=== PATIENT | male | born 1960 | race American Indian/Alaskan Native ===

== ENCOUNTER 2019-01-01 17:48 | Emergency (ER) | payer SELFPAY ==
--- NOTE | 2019-01-01 18:05 | Event Note ---
ED Screening Note Date of service: 01/01/19 Time: 18:02 ED Screening Note: This is a 58 y.o. M. that presents to the ER with thoughts of suicide. Patient reports using crack cocaine for 1-2 months. Denies having a plan. This initial assessment/diagnostic orders/clinical plan/treatment(s) is/are subject to change based on patients health status, clinical progression and re- assessment by fellow clinical providers in the ED. Further treatment and workup at subsequent clinical providers discretion. Patient/guardian urged not to elope from the ED as their condition may be serious if not clinically assessed and managed. Initial orders include: Labs
[2019-01-01 18:24] LABS: Basophils # (Auto) 0.1 K/mm3 (0.0-0.1); Basophils % (Auto) 1.1 % (0.0-1.8); Eosinophils # (Auto) 0.1 K/mm3 (0.0-0.4); Eosinophils % (Auto) 1.4 % (0.0-4.3); Hematocrit 43.5 % (35.5-45.6); Hemoglobin 15.1 gm/dl (11.8-15.2); Lymphocytes # (Auto) 1.6 K/mm3 (1.2-5.4); Lymphocytes % (Auto) 31.4 % (13.4-35.0); Mean Corpuscular HGB Conc 35 % (32-34); Mean Corpuscular Volume 98 fl (84-94); Monocytes # (Auto) 0.5 K/mm3 (0.0-0.8); Monocytes % (Auto) 9.8 % (0.0-7.3); Platelet Count 222 K/mm3 (140-440); Red Blood Count 4.42 M/mm3 (3.65-5.03); Red Cell Distribution Width 13.8 % (13.2-15.2)
[2019-01-01] MEDS ORDERED: ZOFRAN ODT PO STA (18:29)
[2019-01-01] MEDS ORDERED: ALUM-MAG HYDROX-SIMETH 200-200-20MG/5ML PO STA (18:29)
[2019-01-01] MEDS ORDERED: TORADOL IM STA (18:29)
[2019-01-01 18:37] LABS: BUN/Creatinine Ratio 20; Blood Urea Nitrogen 24 mg/dL (9-20); Calcium 9.8 mg/dL (8.4-10.2); Hemolysis Index 16
--- NOTE | 2019-01-01 19:21 | Emergency Department Report ---
ED Psych HPI - General Chief Complaint: Psych Stated Complaint: SI/MH Time Seen by Provider: 01/01/19 18:02 Source: patient Mode of arrival: Ambulatory - History of Present Illness MD Complaint: suicidal ideation -: Sudden, days(s) Associated Psychiatric Symptoms: depression History of same: No Quality: constant Improves With: none Worsens With: none Associated Symptoms: denies other symptoms Treatments Prior to Arrival: none If Self Harm: has plan (report that he would jump out in traffic) - Related Data Home Medications Medication Instructions Recorded Confirmed Last Taken Lisinopril [Zestril TAB] 10 mg PO QDAY 01/02/19 01/02/19 Unknown hydroCHLOROthiazide [HCTZ] 25 mg PO DAILY 01/02/19 01/02/19 Unknown Allergies Allergy/AdvReac Type Severity Reaction Status Date / Time No Known Allergies Allergy Verified 01/01/19 17:52 ED Review of Systems ROS: Stated complaint: SI/MH Other details as noted in HPI Comment: All other systems reviewed and negative ED Past Medical Hx - Past Medical History Previous Medical History?: Yes Hx Hypertension: Yes Hx Arthritis: Yes - Surgical History Past Surgical History?: No - Social History Smoking Status: Current Every Day Smoker Substance Use Type: Cocaine - Medications Home Medications: Home Medications Medication Instructions Recorded Confirmed Last Taken Type Lisinopril [Zestril TAB] 10 mg PO QDAY 01/02/19 01/02/19 Unknown History hydroCHLOROthiazide [HCTZ] 25 mg PO DAILY 01/02/19 01/02/19 Unknown History ED Physical Exam - General Limitations: No Limitations General appearance: alert, in no apparent distress - Head Head exam: Present: atraumatic, normocephalic - Eye Eye exam: Present: normal appearance, PERRL, EOMI Pupils: Present: normal accommodation - ENT ENT exam: Present: normal exam, normal orophraynx, mucous membranes moist - Neck Neck exam: Present: normal inspection, full ROM - Respiratory Respiratory exam: Present: normal lung sounds bilaterally. Absent: respiratory distress, wheezes, rales, chest wall tenderness, accessory muscle use, decreased breath sounds - Cardiovascular Cardiovascular Exam: Present: regular rate, normal rhythm. Absent: systolic murmur, diastolic murmur, rubs, gallop - GI/Abdominal GI/Abdominal exam: Present: soft, normal bowel sounds - Rectal Rectal exam: Present: deferred - Extremities Exam Extremities exam: Present: normal inspection - Back Exam Back exam: Present: normal inspection, full ROM. Absent: CVA tenderness (R), CVA tenderness (L), paraspinal tenderness, vertebral tenderness - Neurological Exam Neurological exam: Present: alert, oriented X3, CN II-XII intact, normal gait - Psychiatric Psychiatric exam: Present: normal affect, normal mood - Skin Skin exam: Present: warm, dry, intact, normal color. Absent: rash ED Course Vital Signs 01/01/19 01/01/19 01/01/19 18:02 18:40 20:42 Temperature 98.3 F 98.8 F Pulse Rate 106 H 75 Respiratory 16 18 18 Rate Blood Pressure Blood Pressure 147/97 131/86 [Left] O2 Sat by Pulse 99 99 Oximetry 01/02/19 01/02/19 01/02/19 01:00 07:00 13:00 Temperature 98.2 F 98.2 F 98.1 F Pulse Rate 80 92 H 96 H Respiratory 18 18 18 Rate Blood Pressure Blood Pressure 135/78 128/77 151/91 [Left] O2 Sat by Pulse 99 98 98 Oximetry 01/02/19 01/02/19 01/03/19 19:30 20:00 01:00 Temperature 98.4 F 98.4 F Pulse Rate 76 72 Respiratory 18 18 18 Rate Blood Pressure Blood Pressure 143/80 134/82 [Left] O2 Sat by Pulse 98 99 Oximetry 01/03/19 01/03/19 01/03/19 07:35 11:10 17:32 Temperature 98.5 F 98.4 F Pulse Rate 89 89 89 Respiratory 18 Rate Blood Pressure 123/103 Blood Pressure 123/103 105/72 [Left] O2 Sat by Pulse 100 96 Oximetry 01/03/19 01/04/19 01/04/19 21:04 02:15 07:00 Temperature 98.1 F 98.2 F 98.1 F Pulse Rate 62 59 L 85 Respiratory 16 18 18 Rate Blood Pressure Blood Pressure 110/68 100/68 119/90 [Left] O2 Sat by Pulse 96 96 99 Oximetry ED Medical Decision Making - Lab Data Result diagrams: 01/01/19 18:13 01/01/19 18:13 - Medical Decision Making 58-year-old Mexican male with known history of depression presents emergency department complaining of suicidal ideation. After evaluation in the emergency department for a psychiatric disease, no findings exacerbating or causing the psychiatric complaint. This patient demonstrates no contributing medical instability or "condition facilitating this psychiatric presentation. See the accompanying mental health development coach's note for more detail Critical care attestation.: If time is entered above; I have spent that time in minutes in the direct care of this critically ill patient, excluding procedure time. ED Disposition Disposition: DC-01 TO HOME OR SELFCARE Condition: Stable Referrals: PRIMARY CARE, [Primary Care Provider] - 3-5 Days
[2019-01-01 22:53] LABS: Bilirubin,Urine NEG (Negative); Blood,Urine NEG (Negative); Color,Urine Yellow (Yellow); Mucus,Urine FEW /HPF; Protein,Urine <15 mg/dL mg/dL (Negative)
[2019-01-01 23:39] LABS: Amphetamine Screen,Urine PRESUMPTIVE NEGATIVE; Benzodiazepines Screen,Urine PRESUMPTIVE NEGATIVE; Methadone Screen,Urine PRESUMPTIVE NEGATIVE; Opiate Screen,Urine PRESUMPTIVE NEGATIVE
[2019-01-01 23:59] LABS: Cannabinoid Screen,Urine PRESUMPTIVE POSITIVE; Cocaine Screen,Urine PRESUMPTIVE POSITIVE
[2019-01-02] MEDS ORDERED: ZOFRAN ODT PO ONE (00:15)
--- NOTE | 2019-01-02 09:30 | Consultation ---
History of Present Illness - Reason for Consult Consult date: 01/02/19 Reason for consult: Mental Health Evaluation Requesting physician: ELICEO HIGUERA - Chief Complaint Chief complaint: "I'm not doing well" - History of Present Psychiatric Illness 58 y/o AA male who presented to the ER for Si's. Today the patient was calm during the assessment. He stated "binging on drugs" for several days prior to coming to the ER. He stated that he have a long hx of substance abuse. He stated that he want help for his dug addiction. He stated that [place] get away from the drugs, but find himself relapsing once he arrived to [facility]. He stated that he is homeless at this time. He rate his depression 7/10, with 10 being the worse. He denies any previous suicide attempts when asked. He would not confirm or deny SI's and a suicide plan. He denies HI's and AVH's. He acknowledged erratic sleep and a poor appetite. He denies alcohol consumption (etoh). Medications and Allergies Allergies Allergy/AdvReac Type Severity Reaction Status Date / Time No Known Allergies Allergy Verified 01/01/19 17:52 Past psychiatric history - Past Medical History Past Medical History: No medical history Past Surgical History: No surgical history - past Psychiatric treatment and history psychiatric treatment history: Hx of substance abuse. Denies a fam psy hx. - Social History Social history: other (Homeless) Mental Status Exam - Vital signs Last Vital Signs Temp 98.2 F 01/02/19 07:00 Pulse 92 H 01/02/19 07:00 Resp 18 01/02/19 07:00 BP 128/77 01/02/19 07:00 Pulse Ox 98 01/02/19 07:00 - Exam Narrative exam: MSE: Appearance: calm, cooperative Behavior: regular eye contact Speech: regular rate and tone Mood: "depressed" Affect: congruent to mood Thought Process: circumstantial Thought Content: denies HI's and AVHs' Motor Activity: lying in bed Cognition: A/O x 3 Insight: variable Judgment: poor Results Result Diagrams: 01/01/19 18:13 01/01/19 18:13 Abnormal lab results 01/01/19 01/01/19 01/01/19 Range/Units 18:13 18:13 18:13 MCV (84-94) fl MCH (28-32) pg MCHC (32-34) % [place] % (Auto) (0.0-7.3) % Chloride 97.0 L (98-107) mmol/L BUN 24 H (9-20) mg/dL Glucose 120 H (75-100) mg/dL Salicylates < 0.3 L (2.8-20.0) mg/dL Acetaminophen < 5.0 L (10.0-30.0) ug/mL 01/01/19 Range/Units 18:13 MCV 98 H (84-94) fl MCH 34 H (28-32) pg MCHC 35 H (32-34) % [place] % (Auto) 9.8 H (0.0-7.3) % Chloride (98-107) mmol/L BUN (9-20) mg/dL Glucose (75-100) mg/dL Salicylates (2.8-20.0) mg/dL Acetaminophen (10.0-30.0) ug/mL All other labs normal. Assessment and Plan Assessment and plan: Impression: MDD. Substance Use DO (cocaine). Cannabis Use DO. Today the patient was calm during the assessment. DDx: Substance Induced Mood DO Recommendations/Plan: Continue 1013 and start Remeron 15 mg PO HS for depression. Discussed possible suicidality/medication induced sudeep with the patient, he verbalized understanding,. Dipso: The patient was referred to inpatient psy services. Will staff with Dr Quan Malik.
[2019-01-02] MEDS ORDERED: ALUM-MAG HYDROX-SIMETH 200-200-20MG/5ML PO ONE (16:40)
[2019-01-02] MEDS: REMERON PO SCH (22:00)
[2019-01-03] MEDS ORDERED: ALUM-MAG HYDROX-SIMETH 200-200-20MG/5ML ONE (02:23)
--- NOTE | 2019-01-03 07:43 | Progress Note ---
Subjective - Reason for Consult Consult date: 01/03/19 Reason for consult: Psychiatry Follow-up - Chief Complaint Chief complaint: "I'm so so" 58 y/o AA male who presented to the ER for Si's. Today the patient was calm during the assessment. He stated that he is doing "so so." He stated that he do not know what his next move will be with his life. He's somewhat guarded during the interview. He denies HI's and AVH's. He would not confirm or deny SI"s. He denies any side effects from his medication. Mental Status Exam - Vital signs Last Vital Signs Temp 98.4 F 01/03/19 01:00 Pulse 72 01/03/19 01:00 Resp 18 01/03/19 01:00 BP 134/82 01/03/19 01:00 Pulse Ox 99 01/03/19 01:00 - Exam Narrative exam: MSE: Appearance: calm, cooperative Behavior: regular eye contact Speech: regular rate and tone Mood: somewhat guarded Affect: flat Thought Process: circumstantial Thought Content: denies HI's and AVH's Motor Activity: lying in bed Cognition: A/O x 3 Insight: fair Judgment: variable Assessment and Plan Impression: MDD. Substance Use DO (cocaine). Cannabis Use DO. Today the patient was calm during the assessment. DDx: Substance Induced Mood DO Recommendations/Plan: Reevaluate the patient's 1013 in 24 hours. Continue Remeron 15 mg PO HS for depression. Discussed possible suicidality/medication induced sudeep with the patient, he verbalized understanding. Case Mgmt involvement, the patient will need assistance with placement. Dipso: If the patient's 1013 is rescinded in 24 hours, he can follow up with [facility] for outpatient psy/rehab services. Will staff with Dr Quan Malik.
[2019-01-03] MEDS ORDERED: ZESTRIL PO ONE (10:39)
[2019-01-03] MEDS ORDERED: HCTZ PO ONE (10:39)
[2019-01-03] MEDS: PEPCID PO PRN ×2 (11:00→21:46)
[2019-01-03] MEDS: REMERON PO SCH (21:46)
--- NOTE | 2019-01-04 08:24 | Progress Note ---
Subjective - Reason for Consult Consult date: 01/04/19 Reason for consult: Psychiatry Follow-up - Chief Complaint Chief complaint: "I will do better" 58 y/o AA male who presented to the ER for Si's. Today the patient was calm and cooperative during the assessment. He stated that he is fine this morning. He stated that he will follow up with [facility] for outpatient psy services. He stated that he will address his substance abuse once discharged. He denies SI/HI's and AVH's. He denies any side effects from his medication. Mental Status Exam - Vital signs Last Vital Signs Temp 98.2 F 01/04/19 02:15 Pulse 59 L 01/04/19 02:15 Resp 18 01/04/19 02:15 BP 100/68 01/04/19 02:15 Pulse Ox 96 01/04/19 02:15 - Exam Narrative exam: MSE: Appearance: calm, cooperative Behavior: regular eye contact Speech: regular rate and tone Mood: "okay" Affect: congruent to mood Thought Process: logical Thought Content: denies SI/HI's and AVH's Motor Activity: lying in bed Cognition: A/O x 3 Insight: fair Judgment: fair Assessment and Plan Impression: MDD. Substance Use DO (cocaine). Cannabis Use DO. Today the patient was calm during the assessment. DDx: Substance Induced Mood DO Recommendations/Plan: Rescind 1013. Continue Remeron 15 mg PO HS for depression. Discussed possible suicidality/medication induced sudeep with the patient, he verbalized understanding. Discussed the importance to abstain from recreational drug use, he verbalized understanding. Case Mgmt involvement, the patient will need assistance with placement. Dipso: The patient can follow up with [facility] for outpatient psy services. Staffed with Dr Quan Malik.
[2019-01-04 10:56] VITALS: BP 119/90
== END 2019-01-04 11:15 | disposition home or self-care (01) ==
LOC: EEVIPCON 17:48 → ED 17:48
DX: F32.9 Major depressive disorder, single episode, unspecified (principal); F14.10 Cocaine abuse, uncomplicated; F12.10 Cannabis abuse, uncomplicated; I10 Essential (primary) hypertension; M19.90 Unspecified osteoarthritis, unspecified site; F17.200 Nicotine dependence, unspecified, uncomplicated
CPT/HCPCS: 36415; 80048; 80307; 81001; 85025; 96372; 99284; J1885; 80320; G0480; Q0162

== ENCOUNTER 2019-01-13 07:34 | Emergency (ER) | payer SELFPAY ==
[2019-01-13 08:18] LABS: Eosinophils # (Auto) 0.1 K/mm3 (0.0-0.4); Eosinophils % (Auto) 1.5 % (0.0-4.3); Hematocrit 38.1 % (35.5-45.6); Lymphocytes # (Auto) 1.3 K/mm3 (1.2-5.4); Lymphocytes % (Auto) 34.8 % (13.4-35.0); Mean Corpuscular HGB Conc 34 % (32-34); Mean Corpuscular Volume 99 fl (84-94); Monocytes # (Auto) 0.3 K/mm3 (0.0-0.8); Monocytes % (Auto) 7.9 % (0.0-7.3); Platelet Count 206 K/mm3 (140-440); Red Blood Count 3.84 M/mm3 (3.65-5.03); Red Cell Distribution Width 13.2 % (13.2-15.2)
[2019-01-13] MEDS ORDERED: ACETAMINOPHEN 325 MG TAB PO ONE (08:29)
[2019-01-13] MEDS ORDERED: DOCUSATE SODIUM 100 MG CAP PO ONE (08:29)
[2019-01-13 08:32] LABS: BUN/Creatinine Ratio 15; Blood Urea Nitrogen 18 mg/dL (9-20); Calcium 9.3 mg/dL (8.4-10.2); Hemolysis Index 4
--- NOTE | 2019-01-13 08:40 | Emergency Department Report ---
<IRAJ SHIN - Last Filed: 01/13/19 13:22> ED Psych HPI - General Chief Complaint: Psych Stated Complaint: SI Time Seen by Provider: 01/13/19 08:06 Source: patient Mode of arrival: Ambulatory - History of Present Illness Initial Comments: 58-year-old -[place] male presents to the emergency room stating he wants to go to [place]. Patient reports he is hearing voices that are telling him to hurt himself. Patient also reports that he recently lost his sister. Patient denies having a plan. Patient does admit to history of depression and hypertension. Patient also complains of swelling to the lower legs. Patient is homeless and walks a lot. Patient also reports has not been able to have a bowel movement in over a week. She denies any abdominal pain but reports that he has pressure in his rectum. MD Complaint: suicidal ideation, feels depressed Onset/Timin -: week(s) Associated Psychiatric Symptoms: depression, suicidal ideation History of same: Yes Improves With: none Worsens With: none Associated Symptoms: denies other symptoms Treatments Prior to Arrival: none If Self Harm: admits thoughts of - Related Data Home Medications Medication Instructions Recorded Confirmed Last Taken Lisinopril [Zestril TAB] 10 mg PO QDAY 01/02/19 01/14/19 Unknown hydroCHLOROthiazide [HCTZ] 25 mg PO DAILY 01/02/19 01/14/19 Unknown Allergies Allergy/AdvReac Type Severity Reaction Status Date / Time No Known Allergies Allergy Verified 01/01/19 17:52 ED Review of Systems Comment: All other systems reviewed and negative ED Past Medical Hx - Past Medical History Hx Hypertension: Yes Hx Arthritis: Yes - Social History Smoking Status: Current Every Day Smoker Substance Use Type: Cocaine, Marijuana, Methamphetamines - Medications Home Medications: Home Medications Medication Instructions Recorded Confirmed Last Taken Type Lisinopril [Zestril TAB] 10 mg PO QDAY 01/02/19 01/14/19 Unknown History hydroCHLOROthiazide [HCTZ] 25 mg PO DAILY 01/02/19 01/14/19 Unknown History ED Physical Exam - General Limitations: No Limitations General appearance: alert, in no apparent distress, anxious - Head Head exam: Present: atraumatic, normocephalic - Eye Eye exam: Present: normal appearance - ENT ENT exam: Present: mucous membranes moist - Neck Neck exam: Present: normal inspection - Respiratory Respiratory exam: Present: normal lung sounds bilaterally. Absent: respiratory distress - Cardiovascular Cardiovascular Exam: Present: regular rate, normal rhythm. Absent: systolic murmur, diastolic murmur, rubs, gallop - GI/Abdominal GI/Abdominal exam: Present: soft, normal bowel sounds. Absent: distended - Extremities Exam Extremities exam: Present: normal inspection, full ROM, pedal edema (bilateral feet) - Back Exam Back exam: Present: normal inspection - Neurological Exam Neurological exam: Present: alert, oriented X3, normal gait - Psychiatric Psychiatric exam: Present: normal affect, normal mood - Expanded Psychiatric Exam Expanded Focused psych exam: Present: pressured speech, delusional, paranoid, flight of ideas ED Medical Decision Making - Lab Data Result diagrams: 01/13/19 08:05 01/13/19 08:05 Laboratory Tests 01/13/19 01/13/19 01/13/19 08:05 08:05 08:05 WBC RBC Hgb Hct MCV MCH MCHC RDW Plt Count Lymph % (Auto) [place] % (Auto) Eos % (Auto) Baso % (Auto) Lymph # [place] # Eos # Baso # Seg Neutrophils % Seg Neutrophils # Sodium 141 Potassium 4.0 Chloride 104.0 Carbon Dioxide 24 Anion Gap 17 BUN 18 Creatinine 1.2 Estimated GFR > 60 BUN/Creatinine Ratio 15 Glucose 117 H Calcium 9.3 Urine Color Urine Turbidity Urine pH Ur Specific [place] Urine Protein Urine Glucose (UA) Urine Ketones Urine Blood Urine Nitrite Urine Bilirubin Urine Urobilinogen Ur Leukocyte Esterase Urine WBC (Auto) Urine RBC (Auto) Salicylates < 0.3 L Urine Opiates Screen Urine Methadone Screen Acetaminophen < 5.0 L Ur Barbiturates Screen Ur Phencyclidine Scrn Ur Amphetamines Screen U Benzodiazepines Scrn Urine Cocaine Screen U Marijuana (THC) Screen Drugs of Abuse Note Plasma/Serum Alcohol 01/13/19 01/13/19 01/13/19 08:05 08:05 08:48 WBC 3.8 L RBC 3.84 Hgb 13.0 Hct 38.1 MCV 99 H MCH 34 H MCHC 34 RDW 13.2 Plt Count 206 Lymph % (Auto) 34.8 [place] % (Auto) 7.9 H Eos % (Auto) 1.5 Baso % (Auto) 1.0 Lymph # 1.3 [place] # 0.3 Eos # 0.1 Baso # 0.0 Seg Neutrophils % 54.8 Seg Neutrophils # 2.1 Sodium Potassium Chloride Carbon Dioxide Anion Gap BUN Creatinine Estimated GFR BUN/Creatinine Ratio Glucose Calcium Urine Color Yellow Urine Turbidity Clear Urine pH 5.0 Ur Specific [place] 1.015 Urine Protein <15 mg/dl Urine Glucose (UA) Neg Urine Ketones Neg Urine Blood Neg Urine Nitrite Neg Urine Bilirubin Neg Urine Urobilinogen 2.0 Ur Leukocyte Esterase Neg Urine WBC (Auto) 1.0 Urine RBC (Auto) 2.0 Salicylates Urine Opiates Screen Urine Methadone Screen Acetaminophen Ur Barbiturates Screen Ur Phencyclidine Scrn Ur Amphetamines Screen U Benzodiazepines Scrn Urine Cocaine Screen U Marijuana (THC) Screen Drugs of Abuse Note Plasma/Serum Alcohol < 0.01 01/13/19 08:48 WBC RBC Hgb Hct MCV MCH MCHC RDW Plt Count Lymph % (Auto) [place] % (Auto) Eos % (Auto) Baso % (Auto) Lymph # [place] # Eos # Baso # Seg Neutrophils % Seg Neutrophils # Sodium Potassium Chloride Carbon Dioxide Anion Gap BUN Creatinine Estimated GFR BUN/Creatinine Ratio Glucose Calcium Urine Color Urine Turbidity Urine pH Ur Specific [place] Urine Protein Urine Glucose (UA) Urine Ketones Urine Blood Urine Nitrite Urine Bilirubin Urine Urobilinogen Ur Leukocyte Esterase Urine WBC (Auto) Urine RBC (Auto) Salicylates Urine Opiates Screen Presumptive negative Urine Methadone Screen Presumptive negative Acetaminophen Ur Barbiturates Screen Presumptive negative Ur Phencyclidine Scrn Presumptive negative Ur Amphetamines Screen Presumptive negative U Benzodiazepines Scrn Presumptive negative Urine Cocaine Screen Presumptive positive U Marijuana (THC) Screen Presumptive positive Drugs of Abuse Note Disclamer Plasma/Serum Alcohol - Medical Decision Making 58-year-old -[place] male presents to the emergency room stating he wants to go to [place]. Patient reports he is hearing voices that are telling him to hurt himself. Patient also reports that he recently lost his sister. Patient denies having a plan. Patient does admit to history of depression and hypertension. Patient also complains of swelling to the lower legs. Patient is homeless and walks a lot. Patient also reports has not been able to have a bowel movement in over a week. He denies any abdominal pain but reports that he has pressure in his rectum. After evaluation in the emergency department for psychiatric disease, no findings exacerbating or causing this psychiatric complaint. The patient demonstrates no contributing medical instability or "conditions facilitating his psychiatric presentation". This patient is medically stable and appropriate for treatment and a psychiatric setting, i.e. Their behavioral disturbance is unlikely to be due to a medical condition was physical trauma, and their medical/surgical treatment for any comorbidities conditions is within the capabilities of receiving facility. See the accompanying mental health geothermal powerplant mechanic's note for more detail. ED Disposition Clinical Impression: History of behavioral and mental health problems Disposition: DC-01 TO HOME OR SELFCARE Condition: Stable Additional Instructions: FOLLOW UP WITH MENTAL HEALTH PER INSTRUCTIONS TAKE MEDS INSTRUCTED AVOID ALCOHOL AND DRUGS Referrals: [facility] [Outside] - 3-5 Days <INDIO PATEL - Last Filed: 01/14/19 10:07> ED Review of Systems ROS: Stated complaint: SI Other details as noted in HPI ED Course Vital Signs 01/13/19 01/13/19 01/13/19 07:43 09:30 19:18 Temperature 97.7 F 98.4 F 98.3 F Pulse Rate 73 72 70 Respiratory 18 16 18 Rate Blood Pressure 146/91 Blood Pressure 137/96 147/91 [137/96] O2 Sat by Pulse 100 100 98 Oximetry 01/14/19 01/14/19 01:00 07:00 Temperature 98.7 F 97.9 F Pulse Rate 71 58 L Respiratory 17 18 Rate Blood Pressure Blood Pressure 149/85 130/90 [137/96] O2 Sat by Pulse 98 98 Oximetry ED Medical Decision Making - Lab Data Result diagrams: 01/13/19 08:05 01/13/19 08:05 Critical care attestation.: If time is entered above; I have spent that time in minutes in the direct care of this critically ill patient, excluding procedure time. ED Disposition Is pt being admited?: No Does the pt Need Aspirin: No Time of Disposition: 10:06
[2019-01-13 08:59] LABS: Bilirubin,Urine NEG (Negative); Blood,Urine NEG (Negative); Color,Urine Yellow (Yellow); Protein,Urine <15 mg/dL mg/dL (Negative)
[2019-01-13 09:06] LABS: Amphetamine Screen,Urine PRESUMPTIVE NEGATIVE; Benzodiazepines Screen,Urine PRESUMPTIVE NEGATIVE; Methadone Screen,Urine PRESUMPTIVE NEGATIVE; Opiate Screen,Urine PRESUMPTIVE NEGATIVE
[2019-01-13 09:30] LABS: Cannabinoid Screen,Urine PRESUMPTIVE POSITIVE; Cocaine Screen,Urine PRESUMPTIVE POSITIVE
--- NOTE | 2019-01-13 12:08 | Consultation ---
History of Present Illness - Reason for Consult Consult date: 01/13/19 Reason for consult: Mental Health Evaluation Requesting physician: IRAJ SHIN - Chief Complaint Chief complaint: "I don"t know what to do with my life" - History of Present Psychiatric Illness 58 y.o. AA male who presented to the ER for SI's. This patient is known to me. Today the patient was calm, but guarded during the assessment. He did state that his sister recently and her has exacerbated his depression. He stated that he have been "binging" on recreational drugs for several days. He would not confirm or deny SI's. He denies HI's and AVH's. The patient was recently discharged from the ER 01/04/2019. His chief complaint was SI's as well. Medications and Allergies Allergies Allergy/AdvReac Type Severity Reaction Status Date / Time No Known Allergies Allergy Verified 01/01/19 17:52 Home Medications Medication Instructions Recorded Confirmed Last Taken Type Lisinopril [Zestril TAB] 10 mg PO QDAY 01/02/19 01/02/19 Unknown History hydroCHLOROthiazide [HCTZ] 25 mg PO DAILY 01/02/19 01/02/19 Unknown History Past psychiatric history - Past Medical History Past Medical History: No medical history Past Surgical History: No surgical history - past Psychiatric treatment and history psychiatric treatment history: Hx of depression and substance abuse. - Social History Social history: other (Homeless) Mental Status Exam - Vital signs Last Vital Signs Temp 98.4 F 01/13/19 09:30 Pulse 72 01/13/19 09:30 Resp 16 01/13/19 09:30 BP 137/96 01/13/19 09:30 Pulse Ox 100 01/13/19 09:30 - Exam Narrative exam: MSE: Appearance: calm, cooperative Behavior: regular eye contact Speech: regular rate and tone Mood: "depressed" guarded Affect: flat Thought Process: circumstantial Thought Content: denies SI/HI's and AVH's Motor Activity: lying in bed Cognition: A/O x 3 Insight: variable Judgment: poor Results Result Diagrams: 01/13/19 08:05 01/13/19 08:05 Abnormal lab results 01/13/19 01/13/19 01/13/19 Range/Units 08:05 08:05 08:05 WBC (4.5-11.0) K/mm3 MCV (84-94) fl MCH (28-32) pg [place] % (Auto) (0.0-7.3) % Glucose 117 H (75-100) mg/dL Salicylates < 0.3 L (2.8-20.0) mg/dL Acetaminophen < 5.0 L (10.0-30.0) ug/mL 01/13/19 Range/Units 08:05 WBC 3.8 L (4.5-11.0) K/mm3 MCV 99 H (84-94) fl MCH 34 H (28-32) pg [place] % (Auto) 7.9 H (0.0-7.3) % Glucose (75-100) mg/dL Salicylates (2.8-20.0) mg/dL Acetaminophen (10.0-30.0) ug/mL All other labs normal. Assessment and Plan Assessment and plan: IOmpression: MDD. Substance Use DO (cocaine). Cannabis Use DO. Today the patient was calm during the assessment. DDx: Substance Induced Mood DO Recommendations/Plan: Continue 1013 and start Remeron 15 mg PO HS for depression. Discussed possible suicidality/medication induced sudeep with the patient reference Remeron, he verbalized understanding. use, he verbalized understanding. Dipso: The patient was referred to inpatient psy services. Will staff with Dr Quan Malik.
[2019-01-13] MEDS ORDERED: MIRTAZAPINE 15 MG TAB PO SCH (22:00)
[2019-01-14 08:00] VITALS: BP 130/90
--- NOTE | 2019-01-14 08:33 | Progress Note ---
Subjective - Reason for Consult Consult date: 01/14/19 Reason for consult: Psychiatry Follow-up - Chief Complaint Chief complaint: "I have done a lot of thinking" 58 y.o. AA male who presented to the ER for SI's. This patient is known to me. Today the patient was calm and cooperative during the assessment. He stated that he must stop with the drug use. He stated that he want to follow up with outpatient psy/rehab services. He stated that he is homeless and need a "jacket" before being discharged. He denies SI/HI's and AVH's. He denies any side effects from his medication. Mental Status Exam - Vital signs Last Vital Signs Temp 97.9 F 01/14/19 07:00 Pulse 58 L 01/14/19 07:00 Resp 18 01/14/19 07:00 BP 130/90 01/14/19 07:00 Pulse Ox 98 01/14/19 07:00 - Exam Narrative exam: MSE: Appearance: calm, cooperative Behavior: regular eye contact Speech: regular rate and tone Mood: "better" Affect: congruent to mood Thought Process: linear Thought Content: denies SI/HI's and AVH's Motor Activity: lying in bed Cognition: A/O x 3 Insight: fair Judgment: fair Assessment and Plan Impression: MDD. Substance Use DO (cocaine). Cannabis Use DO. Today the patient was calm and cooperative during the assessment. The patient is no threat to self. DDx: Substance Induced Mood DO Recommendations/Plan: Rescind 1013 and continue Remeron 15 mg PO HS for depression. Discussed possible suicidality/medication induced sudeep with the patient reference Remeron, he verbalized understanding. use, he verbalized understanding. Discussed the importance to abstain from recreational drug use with the patient, he verbalized understanding. Case Mgmt, the patient will need assistance with placement and clothing. Dipso: The patient can follow up with [facility] for outpatient psy services. Staffed with Dr Quan Malik.
== END 2019-01-14 13:45 | disposition home or self-care (01) ==
LOC: ED 07:34
DX: F32.9 Major depressive disorder, single episode, unspecified (principal); R46.89 Other symptoms and signs involving appearance and behavior; I10 Essential (primary) hypertension; M19.90 Unspecified osteoarthritis, unspecified site; F17.200 Nicotine dependence, unspecified, uncomplicated; F14.10 Cocaine abuse, uncomplicated; F12.10 Cannabis abuse, uncomplicated
CPT/HCPCS: 36415; 80048; 80307; 80320; 81001; 85025; 93005; 93010; G0480